=== PATIENT | female | born 1960 | race Caucasian/White ===

== ENCOUNTER 2016-05-29 02:34 | Emergency (ER) | payer OTHER ==
[~2016-05-29] VITALS: Ht 172.7 cm; Wt 64.5 kg
[2016-05-29] MEDS ORDERED: NORCO 5/3251 TABLET PO (03:59)
[2016-05-29 04:29] VITALS: BP 127/83
== END 2016-05-29 04:30 | disposition home or self-care (01) ==
LOC: EME 02:34
DX: S80.01XA Contusion of right knee, initial encounter (principal); S93.602A Unspecified sprain of left foot, initial encounter; W01.0XXA Fall on same level from slipping, tripping and stumbling without subsequent striking against object, initial encounter
CPT/HCPCS: 73564; 73630; 99281; 99283